=== PATIENT | female | born 1940 | race Caucasian/White ===

== ENCOUNTER 2023-10-27 12:46 | Inpatient (IN) | payer MEDICARE, OTHER ==
[~2023-10-27] VITALS: Ht 160 cm; Wt 45.8 kg
[2023-10-27 13:19] LABS: BASOPHILS % (AUTO) 0.5 % (0.0-2.0); EOSINOPHILS % (AUTO) 0.2 % (0.0-7.0); HEMATOCRIT 36.2 % (31.2-41.9); HEMOGLOBIN 12.1 g/dL (10.9-14.3); LYMPHOCYTES # (AUTO) 1.1 K/uL (0.8-4.8); LYMPHOCYTES % (AUTO) 18.6 % (20.5-51.5); MEAN CORPUSCULAR HGB CONC 33 g/dL (32.3-35.6); MEAN CORPUSCULAR VOLUME 92.8 fL (75.5-95.3); MONOCYTES # (AUTO) 0.3 K/uL (0.1-1.30); MONOCYTES % (AUTO) 5.5 % (0.0-11.0); NEUTROPHILS # (AUTO) 4.6 K/uL (1.8-8.9); NEUTROPHILS % (AUTO) 75.2 % (38.5-71.5); PLATELET COUNT (AUTO) 212 K/uL (179-408); RED CELL DISTRIBUTION WIDTH 14.5 % (12.3-17.7); WHITE BLOOD COUNT (AUTO) 6.1 K/uL (3.8-11.8)
[2023-10-27 13:26] LABS: DIFFERENTIAL COMMENT 1
[2023-10-27] MEDS ORDERED: ONDANSETRON 4 MG/2 ML VIAL ONE (13:28)
[2023-10-27] MEDS ORDERED: MORPHINE SULFATE 4 MG/1 ML DISP.SYRIN ONE (13:29)
[2023-10-27] MEDS: MORPHINE SULFATE 4 MG/1 ML DISP.SYRIN IV ONE (13:30)
[2023-10-27] MEDS: ONDANSETRON 4 MG/2 ML VIAL IV ONE (13:31)
[2023-10-27 13:34] LABS: CARBON DIOXIDE 26 mmol/L (21-32); CHLORIDE 105 mmol/L (98-107); CREATININE 0.8 mg/dL (0.6-1.3); GLUCOSE 122 mg/dL (74-106); POTASSIUM 3.8 mmol/L (3.5-5.1); SODIUM SERUM 141 mmol/L (136-145); UREA NITROGEN, BLOOD 19 mg/dL (7-18)
[2023-10-27 13:46] LABS: ALANINE AMINOTRANSFERASE 25 U/L (14-59); ALBUMIN 3.5 g/dL (3.4-5.0); ALKALINE PHOSPHATASE 62 U/L (50-136); ASPARTATE AMINOTRANSFERASE 17 U/L (15-37); BILIRUBIN,DIRECT 0.2 mg/dL (0.0-0.2); BILIRUBIN,TOTAL 0.9 mg/dL (0.2-1.0)
[2023-10-27 13:47] LABS: THYROID STIMULATING HORMONE 7.096 mIU/mL (0.358-3.740)
[2023-10-27 14:37] LABS: *BILIRUBIN,URIN NEGATIVE (NEGATIVE); *BLOOD, URINE NEGATIVE (NEGATIVE); *CLARITY,URINE CLOUDY (CLEAR); *COLOR,URINE YELLOW (YELLOW); *KETONES,URINE NEGATIVE (NEGATIVE); *PROTEIN,URINE NEGATIVE (NEGATIVE); *UROBILINOGEN,URINE 0.2 E.U./dl (NORMAL); LEUKOCYTE ESTERASE ,URINE NEGATIVE (NEGATIVE); NITRITE, URINE NEGATIVE (NEGATIVE); PH,URINE 6.5 (5.0-8.0); UGLUCOSE NEGATIVE (NEGATIVE)
[2023-10-27 14:54] LABS: *AMPHETAMINE, URINE NEGATIVE (NEGATIVE); *BARBITURATE, URINE NEGATIVE (NEGATIVE); *BENZODIAZEPINE, URINE NEGATIVE (NEGATIVE); *CANNABINOID, URINE NEGATIVE (NEGATIVE); *COCCAINE, URINE NEGATIVE (NEGATIVE); *OPIATE, URINE POSITIVE (NEGATIVE); *PHENCYCLIDINE SCREEN,URINE NEGATIVE (NEGATIVE); FENTANYL, URINE NEGATIVE (NEGATIVE)
[2023-10-27 15:00] LABS: CALCIUM OXALATE CRYSTALS,UR MODERATE /HPF (NONE SEEN); URINE AMORPHOUS URATE MANY /HPF; WBC,URINE NONE SEEN /HPF (0-3)
[2023-10-27] MEDS ORDERED: ONDANSETRON 4 MG/2 ML VIAL IV PRN ×2 (15:00→19:00)
[2023-10-27] MEDS ORDERED: ACETAMINOPHEN 325 MG TABLET PO PRN (15:00)
[2023-10-27] MEDS ORDERED: MAGNESIUM HYDROXIDE 30 ML LIQUID UDC PO PRN (15:00)
[2023-10-27] MEDS ORDERED: hydrALAZINE HCL 20 MG/1 ML VIAL IV PRN (15:00)
[2023-10-27] MEDS ORDERED: MORPHINE SULFATE 2 MG/1 ML DISP.SYRIN ONE (15:22)
[2023-10-27] MEDS: MORPHINE SULFATE 2 MG/1 ML DISP.SYRIN IVP PRN (15:23)
[2023-10-27] MEDS ORDERED: PANT40TA49 PO (16:36)
[2023-10-27] MEDS ORDERED: ROSU10TA29 PO (16:36)
[2023-10-27] MEDS: hydrALAZINE HCL 20 MG/1 ML VIAL IV PRN (21:48)
[2023-10-28 07:21] VITALS: BP 162/74; TEMP 98; O2SAT 96
[2023-10-28 12:32] VITALS: BP 157/73; TEMP 98.3; O2SAT 97
[2023-10-28 15:33] VITALS: BP 140/68; TEMP 97.9; O2SAT 96
[2023-10-28 20:00] VITALS: BP 137/65; TEMP 98.1; O2SAT 96
[2023-10-28] MEDS: HEPARIN SODIUM,PORCINE 5,000 UNITS/ML VIAL SQ SCH (20:42)
[2023-10-28] MEDS ORDERED: HEPARIN SODIUM,PORCINE 5,000 UNITS/ML VIAL SQ SCH (21:00)
[2023-10-29 06:35] LABS: BASOPHILS % (AUTO) 0.2 % (0.0-2.0); HEMATOCRIT 38.1 % (31.2-41.9); HEMOGLOBIN 12.8 g/dL (10.9-14.3); LYMPHOCYTES # (AUTO) 0.5 K/uL (0.8-4.8); MEAN CORPUSCULAR HEMOGLOBIN 31.2 uug (24.7-32.8); MEAN CORPUSCULAR HGB CONC 34 g/dL (32.3-35.6); MEAN CORPUSCULAR VOLUME 92.5 fL (75.5-95.3); MONOCYTES # (AUTO) 1.6 K/uL (0.1-1.30); MONOCYTES % (AUTO) 11.9 % (0.0-11.0); NEUTROPHILS # (AUTO) 11.4 K/uL (1.8-8.9); NEUTROPHILS % (AUTO) 83.9 % (38.5-71.5); PLATELET COUNT (AUTO) 171 K/uL (179-408); RED BLOOD CELL COUNT(AUTO) 4.11 MIL/uL (3.63-4.92); RED CELL DISTRIBUTION WIDTH 14.1 % (12.3-17.7); WHITE BLOOD COUNT (AUTO) 13.6 K/uL (3.8-11.8)
[2023-10-29 06:42] LABS: DIFFERENTIAL COMMENT 1
[2023-10-29 06:53] VITALS: BP 141/93; TEMP 98.4; O2SAT 95
[2023-10-29 06:59] LABS: CALCIUM 9.1 mg/dL (8.5-10.1); CREATININE 0.6 mg/dL (0.6-1.3); MAGNESIUM 1.9 mg/dL (1.8-2.4); POTASSIUM 3.7 mmol/L (3.5-5.1)
[2023-10-29] MEDS ORDERED: FENTANYL CITRATE 100 MCG/2 ML AMPUL ONE (07:34)
[2023-10-29] MEDS ORDERED: PROPOFOL 200 MG/20 ML BOTTLE ONE (08:00)
[2023-10-29] MEDS ORDERED: VANCOMYCIN 1000 MG VIAL ONE (08:02)
[2023-10-29] MEDS ORDERED: PANTOPRAZOLE SODIUM 40 MG TABLET.DR PO SCH (09:00)
[2023-10-29] MEDS ORDERED: Medication Not On Formulary EA (Rosuvastatin Calcium 1 TAB) PO SCH (09:00)
[2023-10-29] MEDS: NEUTRA PHOS PACKET PO ONE (09:38)
[2023-10-29] MEDS ORDERED: MORPHINE SULFATE 2 MG/1 ML DISP.SYRIN IVP PRN (10:00)
[2023-10-29 11:29] VITALS: BP 109/62; TEMP 97.5; O2SAT 98
[2023-10-29] MEDS: POTASSIUM CHLORIDE 20 MEQ in IV D5 1/2 NS 1000 ML 1,000 ML IV PRN (15:14)
[2023-10-29] MEDS: CEFAZOLIN 1 G in IV DEXTROSE 5% 50 ML IV SCH (15:17)
[2023-10-29 15:28] VITALS: BP 87/45; TEMP 97.5; O2SAT 94
[2023-10-29] MEDS: IV NS 1000 ML 1,000 ML IV ONE (15:52)
[2023-10-29 16:12] LABS: BASOPHILS # (AUTO) 0.1 K/UL (0.0-0.2); BASOPHILS % (AUTO) 0.4 % (0.0-2.0); HEMOGLOBIN 9.5 g/dL (10.9-14.3); LYMPHOCYTES # (AUTO) 0.3 K/uL (0.8-4.8); LYMPHOCYTES % (AUTO) 2.1 % (20.5-51.5); MEAN CORPUSCULAR HEMOGLOBIN 30.6 uug (24.7-32.8); MEAN CORPUSCULAR HGB CONC 33 g/dL (32.3-35.6); MEAN CORPUSCULAR VOLUME 92.8 fL (75.5-95.3); MONOCYTES # (AUTO) 1.9 K/uL (0.1-1.30); MONOCYTES % (AUTO) 11.5 % (0.0-11.0); NEUTROPHILS # (AUTO) 13.9 K/uL (1.8-8.9); PLATELET COUNT (AUTO) 156 K/uL (179-408); RED BLOOD CELL COUNT(AUTO) 3.12 MIL/uL (3.63-4.92); RED CELL DISTRIBUTION WIDTH 14.3 % (12.3-17.7); WHITE BLOOD COUNT (AUTO) 16.1 K/uL (3.8-11.8)
[2023-10-29 16:16] LABS: DIFFERENTIAL COMMENT 1
[2023-10-29 16:24] LABS: CALCIUM 8.3 mg/dL (8.5-10.1); CREATININE 0.8 mg/dL (0.6-1.3); POTASSIUM 3.8 mmol/L (3.5-5.1)
[2023-10-29 16:26] VITALS: BP 97/55
[2023-10-29 16:29] LABS: ALBUMIN 2.3 g/dL (3.4-5.0); BILIRUBIN,TOTAL 1.7 mg/dL (0.2-1.0); TOTAL PROTEIN, SERUM 5.3 g/dL (6.4-8.2)
[2023-10-29] MEDS ORDERED: VANCOMYCIN IV 1,000 MG in IV NORMAL SALINE 250 ML IV ONE (18:45)
[2023-10-29] MEDS: VANCOMYCIN HCL 750 MG in IV DEXTROSE 5% 250 ML IV SCH (19:51)
[2023-10-29 20:00] VITALS: BP 99/46; TEMP 98.2; O2SAT 99
[2023-10-29] MEDS ORDERED: VANCOMYCIN IV 1,000 MG in IV DEXTROSE 5% 250 ML IV SCH (20:00)
[2023-10-29] MEDS ORDERED: CEFEPIME HCL 1 G in IV DEXTROSE 5% 50 ML IV SCH (20:00)
[2023-10-29] MEDS: ATORVASTATIN 20 MG TABLET PO SCH (20:04)
[2023-10-29] MEDS: CEFEPIME HCL 1 G in IV DEXTROSE 5% 50 ML IV SCH (21:17)
[2023-10-29 22:08] LABS: HEMATOCRIT 26.3 % (31.2-41.9); HEMOGLOBIN 8.8 g/dL (10.9-14.3)
[2023-10-30 06:05] LABS: CALCIUM 8.3 mg/dL (8.5-10.1); CARBON DIOXIDE 23 mmol/L (21-32); CHLORIDE 99 mmol/L (98-107); CREATININE 0.8 mg/dL (0.6-1.3); GLUCOSE 123 mg/dL (74-106); MAGNESIUM 1.8 mg/dL (1.8-2.4); PHOSPHOROUS 1.6 mg/dL (2.5-4.9); POTASSIUM 4.4 mmol/L (3.5-5.1); SODIUM SERUM 123 mmol/L (136-145); UREA NITROGEN, BLOOD 26 mg/dL (7-18)
[2023-10-30 06:06] LABS: BASOPHILS % (AUTO) 0.1 % (0.0-2.0); EOSINOPHILS % (AUTO) 0.1 % (0.0-7.0); HEMOGLOBIN 8.5 g/dL (10.9-14.3); LYMPHOCYTES # (AUTO) 0.7 K/uL (0.8-4.8); LYMPHOCYTES % (AUTO) 6.2 % (20.5-51.5); MEAN CORPUSCULAR HEMOGLOBIN 31.1 uug (24.7-32.8); MEAN CORPUSCULAR HGB CONC 34 g/dL (32.3-35.6); MEAN CORPUSCULAR VOLUME 91.3 fL (75.5-95.3); MONOCYTES # (AUTO) 1.8 K/uL (0.1-1.30); MONOCYTES % (AUTO) 15.2 % (0.0-11.0); NEUTROPHILS # (AUTO) 9.4 K/uL (1.8-8.9); NEUTROPHILS % (AUTO) 78.4 % (38.5-71.5); PLATELET COUNT (AUTO) 148 K/uL (179-408); RED BLOOD CELL COUNT(AUTO) 2.73 MIL/uL (3.63-4.92)
[2023-10-30 06:16] LABS: DIFFERENTIAL COMMENT 1
[2023-10-30 06:32] VITALS: BP 96/38; TEMP 98; O2SAT 94
[2023-10-30] MEDS ORDERED: PANTOPRAZOLE SODIUM 40 MG TABLET.DR PO SCH (07:00)
[2023-10-30 07:06] LABS: LYMPHOCYTES % (MANUAL) 8 % (20-40); MONOCYTES % (MANUAL) 9 % (2-10); NEUTROPHILS % (MANUAL) 83 % (42-75)
[2023-10-30 07:07] LABS: ANISOCYTOSIS 1+; PLATELET ESTIMATE DECREASED
[2023-10-30 08:33] VITALS: BP 105/44; TEMP 98; O2SAT 96
[2023-10-30] MEDS: HEPARIN SODIUM,PORCINE 5,000 UNITS/ML VIAL SQ SCH (08:50)
[2023-10-30] MEDS: ACETAMINOPHEN 325 MG TABLET PO PRN (09:23)
[2023-10-30 10:05] LABS: HEMATOCRIT 23.3 % (31.2-41.9)
[2023-10-30 11:17] VITALS: BP 108/43; TEMP 98.2; O2SAT 95
[2023-10-30] MEDS: IV NS 1000 ML 1,000 ML IV PRN (11:47)
[2023-10-30 14:42] LABS: CALCIUM 8.6 mg/dL (8.5-10.1); CREATININE 0.8 mg/dL (0.6-1.3); MAGNESIUM 1.9 mg/dL (1.8-2.4); PHOSPHOROUS 1.6 mg/dL (2.5-4.9); POTASSIUM 4.7 mmol/L (3.5-5.1)
[2023-10-30 14:52] LABS: THYROID STIMULATING HORMONE 2.362 mIU/mL (0.358-3.740)
[2023-10-30 15:01] LABS: URIC ACID 1.7 mg/dL (2.6-6.0)
[2023-10-30 15:17] VITALS: BP 107/52; TEMP 98.2; O2SAT 96
[2023-10-30] MEDS: NEUTRA PHOS PACKET PO ONE (17:13)
[2023-10-30 20:00] VITALS: BP 112/52; TEMP 97.7; O2SAT 99
[2023-10-30 22:26] LABS: HEMATOCRIT 22.2 % (31.2-41.9); HEMOGLOBIN 7.6 g/dL (10.9-14.3)
[2023-10-31 05:55] VITALS: BP 109/50; TEMP 97.8; O2SAT 99
[2023-10-31 06:38] LABS: BASOPHILS % (AUTO) 0.2 % (0.0-2.0); EOSINOPHILS % (AUTO) 0.3 % (0.0-7.0); LYMPHOCYTES # (AUTO) 0.6 K/uL (0.8-4.8); LYMPHOCYTES % (AUTO) 6.3 % (20.5-51.5); MEAN CORPUSCULAR HGB CONC 34 g/dL (32.3-35.6); MEAN CORPUSCULAR VOLUME 91.3 fL (75.5-95.3); MONOCYTES # (AUTO) 1.2 K/uL (0.1-1.30); MONOCYTES % (AUTO) 12.4 % (0.0-11.0); NEUTROPHILS # (AUTO) 7.6 K/uL (1.8-8.9); NEUTROPHILS % (AUTO) 80.8 % (38.5-71.5); PLATELET COUNT (AUTO) 165 K/uL (179-408); RED CELL DISTRIBUTION WIDTH 14.1 % (12.3-17.7); WHITE BLOOD COUNT (AUTO) 9.4 K/uL (3.8-11.8)
[2023-10-31 06:54] LABS: CALCIUM 8.2 mg/dL (8.5-10.1); CREATININE 0.6 mg/dL (0.6-1.3); PHOSPHOROUS 1.7 mg/dL (2.5-4.9); POTASSIUM 3.8 mmol/L (3.5-5.1); RED BLOOD CELL COUNT(AUTO) 2.22 MIL/uL (3.63-4.92)
[2023-10-31 06:55] LABS: DIFFERENTIAL COMMENT 1
[2023-10-31 06:58] LABS: HEMATOCRIT 20.3 % (31.2-41.9); HEMOGLOBIN 6.9 g/dL (10.9-14.3)
[2023-10-31 10:24] LABS: HEMOGLOBIN 6.8 g/dL (10.9-14.3)
[2023-10-31 10:25] LABS: HEMATOCRIT 20.5 % (31.2-41.9)
[2023-10-31] MEDS: NEUTRA PHOS PACKET PO ONE ×2 (11:21→16:51)
[2023-10-31 11:32] VITALS: BP 108/49; TEMP 98.1; O2SAT 94
[2023-10-31 15:49] VITALS: BP 106/58; TEMP 98.8; O2SAT 99
[2023-10-31 17:35] LABS: BASOPHILS % (MANUAL) 0 % (0-2); EOSINOPHILS % (MANUAL) 0 % (0-8); LYMPHOCYTES % (MANUAL) 10 % (20-40); MONOCYTES % (MANUAL) 10 % (2-10); NEUTROPHILS % (MANUAL) 80 % (42-75)
[2023-10-31 20:00] VITALS: BP 129/51; TEMP 98.3; O2SAT 96
[2023-11-01] VITALS (9 sets, daily range): BP systolic 103–140; BP diastolic 54–70; TEMP 96.1–98.8; O2SAT 97–99
[2023-11-01 07:21] LABS: CALCIUM 8.5 mg/dL (8.5-10.1); CARBON DIOXIDE 26 mmol/L (21-32); CHLORIDE 103 mmol/L (98-107); CREATININE 0.5 mg/dL (0.6-1.3); GLUCOSE 94 mg/dL (74-106); POTASSIUM 3.7 mmol/L (3.5-5.1); SODIUM SERUM 136 mmol/L (136-145); UREA NITROGEN, BLOOD 12 mg/dL (7-18)
[2023-11-01 07:26] LABS: HEMOGLOBIN 6.9 g/dL (10.9-14.3)
[2023-11-01] MEDS ORDERED: DOCUSATE SODIUM 100 MG/10 ML LIQUID UDC GT SCH (12:15)
[2023-11-01] MEDS ORDERED: DOCUSATE SODIUM 100 MG CAPSULE PO SCH ×2 (12:49)
[2023-11-01] MEDS: DOCUSATE SODIUM 100 MG CAPSULE PO SCH (13:02)
[2023-11-01] MEDS: NEUTRA PHOS PACKET PO ONE (16:36)
[2023-11-01 17:14] LABS: HEMATOCRIT 27.6 % (31.2-41.9); HEMOGLOBIN 9.3 g/dL (10.9-14.3)
[2023-11-01] MEDS ORDERED: HEPARIN SODIUM,PORCINE 5,000 UNITS/ML VIAL SQ SCH (21:00)
[2023-11-01] MEDS: MAGNESIUM HYDROXIDE 30 ML LIQUID UDC PO PRN (22:36)
[2023-11-02 06:08] VITALS: BP 130/75; TEMP 98.9; O2SAT 95
[2023-11-02 07:32] LABS: BASOPHILS % (AUTO) 0.3 % (0.0-2.0); EOSINOPHILS # (AUTO) 0.1 K/uL (0.0-0.7); EOSINOPHILS % (AUTO) 0.7 % (0.0-7.0); HEMOGLOBIN 9.8 g/dL (10.9-14.3); LYMPHOCYTES # (AUTO) 0.7 K/uL (0.8-4.8); LYMPHOCYTES % (AUTO) 7.6 % (20.5-51.5); MEAN CORPUSCULAR HEMOGLOBIN 31.2 uug (24.7-32.8); MEAN CORPUSCULAR HGB CONC 35 g/dL (32.3-35.6); MEAN CORPUSCULAR VOLUME 89.3 fL (75.5-95.3); MONOCYTES # (AUTO) 1.1 K/uL (0.1-1.30); MONOCYTES % (AUTO) 13.4 % (0.0-11.0); NEUTROPHILS # (AUTO) 6.7 K/uL (1.8-8.9); PLATELET COUNT (AUTO) 215 K/uL (179-408); RED BLOOD CELL COUNT(AUTO) 3.14 MIL/uL (3.63-4.92); RED CELL DISTRIBUTION WIDTH 14.8 % (12.3-17.7); WHITE BLOOD COUNT (AUTO) 8.6 K/uL (3.8-11.8)
[2023-11-02 07:38] LABS: DIFFERENTIAL COMMENT 1
[2023-11-02 07:52] LABS: CALCIUM 8.7 mg/dL (8.5-10.1); CARBON DIOXIDE 29 mmol/L (21-32); CHLORIDE 103 mmol/L (98-107); CREATININE 0.5 mg/dL (0.6-1.3); GLUCOSE 97 mg/dL (74-106); PHOSPHOROUS 2.1 mg/dL (2.5-4.9); POTASSIUM 4.1 mmol/L (3.5-5.1); SODIUM SERUM 136 mmol/L (136-145); UREA NITROGEN, BLOOD 12 mg/dL (7-18)
[2023-11-02] MEDS: HYDROCODONE/APAP 10-325 MG TABLET PO PRN (08:34)
[2023-11-02 11:34] VITALS: BP 128/46; TEMP 97.8; O2SAT 96
[2023-11-02] MEDS ORDERED: DOCU-141 PO (11:58)
[2023-11-02] MEDS ORDERED: ENOX40DI SQ (11:58)
[2023-11-02] MEDS: ENSURE WITH FIBER 237 ML LIQUID (CHOCOLATE) PO SCH (16:02)
[2023-11-02 16:03] VITALS: BP 119/52; TEMP 97.6; O2SAT 95
[2023-11-02] MEDS: NEUTRA PHOS PACKET PO ONE (17:21)
[2023-11-02 20:00] VITALS: BP 116/62; TEMP 98.2
[2023-11-03 06:00] VITALS: BP 121/65; TEMP 98.1; O2SAT 96
[2023-11-03 08:31] VITALS: BP 123/71; TEMP 98.4; O2SAT 95
[2023-11-03 11:43] VITALS: BP 118/61; TEMP 98.1; O2SAT 97
[2023-11-03 15:12] VITALS: BP_SYST 110; BP_SYST 117; BP_DIAS 52; BP_DIAS 69; TEMP 97.6; TEMP 98.5; O2SAT 96
== END 2023-11-03 17:45 | DRG 522 ==
LOC: ER 12:46 → MEDSURG3 19:43
PROVIDERS: ADMIT Internal Medicine; ATTEND Internal Medicine
PROC: 0SRS0JA Replacement of Left Hip Joint, Femoral Surface with Synthetic Substitute, Uncemented, Open Approach (ICD-10-PCS; principal; 2023-10-29)
PROC: 0S9D3ZZ Drainage of Left Knee Joint, Percutaneous Approach (ICD-10-PCS; 2023-10-29)
PROC: 30233N1 Transfusion of Nonautologous Red Blood Cells into Peripheral Vein, Percutaneous Approach (ICD-10-PCS; 2023-10-31)
DX: S72.032A Displaced midcervical fracture of left femur, initial encounter for closed fracture (principal); M25.062 Hemarthrosis, left knee; E87.1 Hypo-osmolality and hyponatremia; Z68.1 Body mass index [BMI] 19.9 or less, adult; E44.1 Mild protein-calorie malnutrition; W10.8XXA Fall (on) (from) other stairs and steps, initial encounter; Y92.511 Restaurant or cafe as the place of occurrence of the external cause; D64.89 Other specified anemias; E03.8 Other specified hypothyroidism; E78.5 Hyperlipidemia, unspecified; E83.39 Other disorders of phosphorus metabolism; Z79.890 Hormone replacement therapy; K21.9 Gastro-esophageal reflux disease without esophagitis; Z90.710 Acquired absence of both cervix and uterus; D72.829 Elevated white blood cell count, unspecified
CPT/HCPCS: 36415; 70030-TC; 70450; 71045; 72170; 73100; 73501; 82533; 83735; 84100; 84443; 84481; 84484; 84550; 85018; 85025; 85730; 86850; 86900; 86901; 86920; 93005; 93307; A4663; A6213; C1758; C1776; G0378; J0330; J0360; J0690; J0692; J1100; J1644; J2270; J2405; J3010; J3370; J3480; J3490; J7040; J7050; P9016

== ENCOUNTER 2025-04-05 13:00 | Emergency (ER) | payer MEDICARE ==
[~2025-04-05] VITALS: Ht 160 cm; Wt 47.2 kg
[~2025-04-05 13:00] MED LIST: DOCU-141 PO; ENOX40DI SQ; ROSU10TA72 PO
[2025-04-05 13:03] VITALS: BP 155/60
[2025-04-05] MEDS ORDERED: COD113PA3 TP (13:59)
[2025-04-05] MEDS ORDERED: SULF1TAB48 PO (13:59)
[2025-04-05 14:14] VITALS: BP 155/60; O2SAT 95
== END 2025-04-05 14:16 | disposition home or self-care (01) ==
LOC: ER 13:00
DX: L89.151 Pressure ulcer of sacral region, stage 1 (principal); L89.152 Pressure ulcer of sacral region, stage 2; Z79.899 Other long term (current) drug therapy; Z88.7 Allergy status to serum and vaccine; Z96.642 Presence of left artificial hip joint
CPT/HCPCS: A4606; A4663